=== PATIENT | male | born 1965 | race Caucasian/White ===

== ENCOUNTER 2016-11-17 15:39 | Emergency (ER) | payer MEDICAID ==
[2016-11-17 15:57] VITALS: BP 98/51
--- NOTE | 2016-11-17 16:30 | UC ---
Marichuy Mullins Rebecca, scribed for Mukund Hackett MD on 11/17/16 at 1600 . Skin Complaint HPI - HPI Summary HPI Summary: Pt is a 51 y/o M who presents to [facility] c/o RUE rash and R hand swelling. Sx began 3-4 days ago and have been constant since onset. Rash is characterized as pruritic, erythematous hives with some blistering. Symptoms are discrete to the RUE midway up the upper arm and is not present anywhere else. Associated pain is currently 8/10, characterized as aching. Sx aggravated and alleviated by nothing. Additionally c/o fever, chills. Has not taken anything to treat sx. Confirms that he works outside often. He is right-handed. No PMHx poison sanam. - History of Current Complaint [facility] Time Seen by Provider: 11/17/16 15:58 Stated Complaint: RIGHT HAND SWELLING Hx Obtained From: Patient Onset/Duration: Lasting Days - 3-4 days, Still Present Timing: Constant Current Severity: Severe Pain Intensity: 8 Pain Scale Used: 0-10 Numeric Location: Other - RUE midway up the upper arm Character: Swelling, Pruritus, Pain, Hives, Redness Aggravating: Nothing Alleviating: Nothing Associated Signs & Symptoms: Positive: Fever, Chills - Allergy/Home Medications Allergies/Adverse Reactions: Allergies Allergy/AdvReac Type Severity Reaction Status Date / Time No Known Allergies Allergy Verified 11/17/16 15:57 Home Medications: Home Medications Naproxen Sodium [Naproxen Sodium 500 MG TAB] 500 mg PO BID 11/17/16 [History Confirmed 11/17/16] OLANzapine TAB* [Zyprexa 10 MG TAB*] 10 mg PO BEDTIME 11/17/16 [History Confirmed 11/17/16] QUEtiapine TAB* [SEROquel TAB*] 100 mg PO BID PRN 11/17/16 [History Confirmed ] Sertraline* [Zoloft*] 100 mg PO BEDTIME 11/17/16 [History Confirmed 11/17/16] Review of Systems Constitutional: Fever, Chills Skin: Rash - Erythematous, swelling hives with some blistering and associated pain of 8/10 Eyes: Negative ENT: Negative Respiratory: Negative Cardiovascular: Negative Gastrointestinal: Negative Genitourinary: Negative Motor: Negative Neurovascular: Negative Musculoskeletal: Negative Neurological: Negative Psychological: Negative All Other Systems Reviewed And Are Negative: Yes PMH/Surg Hx/FS Hx/Imm Hx Previously Healthy: No - Hx "bad back" and "bad heel" - heel fx Neurological History: Seizures - Surgical History Surgical History: Yes Surgery Procedure, Year, and Place: APPY. SX FOR LEFT EYE - Family History Known Family History: Positive: Diabetes, Other - CVA - Social History Alcohol Use: None Substance Use Type: None Smoking Status (MU): Current Every Day Smoker Type: Cigarettes Amount Used/How Often: 20 CIGS PER DAY Have You Smoked in the Last Year: Yes Household Exposure Type: Cigarettes Physical Exam Triage Information Reviewed: Yes Vital Signs: Initial Vital Signs Temp 97.8 F 11/17/16 15:50 Pulse 70 11/17/16 15:50 Resp 16 11/17/16 15:50 BP 98/51 11/17/16 15:50 Pulse Ox 98 11/17/16 15:50 Vital Signs Reviewed: Yes - Additional Comments The patient is well-nourished in no acute distress and in no acute pain. The skin is warm and dry. He has excoriated lesions discreetly on the R arm which he has excessively scratched. Appears to be similar to contact dermatitis or roost dermatitis. Does not look like scabies. Slight swelling on the dorsum of the R hand with FROM. No epitrochlear or axillary adenopathy. No lymphangitis. Not hot to touch. Neurovascular is intact. Respiratory: Chest is non-tender. Lungs are clear to auscultation and breath sounds are symmetrical and equal. Cardiovascular: Hear is regular rate and rhythm. There is no murmur or rub auscultated. There is no peripheral edema and pulses are symmetrical and equal. Musculoskeletal: There is no back pain noted. Extremities are non-tender with full range of motion. There is good capillary refill. There is no peripheral edema or calf tenderness elicited. Neurological: Patient is alert and oriented to person, place and time. The patient has symmetrical motor strength in all four extremities. Cranial nerves are grossly intact. Deep tendon reflexes are symmetrical and equal in all four extremities. Psychiatric: The patient has an appropriate affect and does not exhibit any anxiety or depression. Course/Dx - Course Course Of Treatment: Pt is a 51 y/o M who presents to [facility] c/o RUE rash and R hand swelling and have been constant since onset. Rash is characterized as pruritic, erythematous hives with some blistering. Symptoms are discrete to the RUE midway up the upper arm and is not present anywhere else. Associated pain is currently 8/10, characterized as aching. Additionally c/o fever, chills. Confirms that he works outside often. He is right-handed. No PMHx poison sanam. He will be D/C to home with Dx of contact dermatitis and Rx for Prednisone and Benadryl. He understands and agrees. - Differential Diagnoses - Skin Complaint Differential Diagnoses: Cellulitis, Contact Dermatitis, Poison Sanam, Poison [place] - Diagnoses Provider Diagnoses: Contact Dermatitis Discharge - Discharge Plan Condition: Stable Disposition: HOME Prescriptions: diPHENhydraMINE PO* [Benadryl PO 50 MG CAP*] 50 mg PO Q6H PRN #30 cap PRN Reason: itching predniSONE TAB* [Deltasone TAB*] 20 mg PO DAILY #30 tab Patient Education Materials: Contact Dermatitis (ED) Referrals: HUBERT WatermanAbdirashid [Primary Care Provider] - 3 Days The documentation as recorded by the Marichuy tellez Rebecca accurately reflects the service I personally performed and the decisions made by , Mukund Hackett MD.
== END 2016-11-17 16:34 | disposition home or self-care (01) ==
LOC: UCCORT 15:39
DX: L25.9 Unspecified contact dermatitis, unspecified cause (principal); F17.210 Nicotine dependence, cigarettes, uncomplicated
CPT/HCPCS: 99212; G0463